=== PATIENT | female | born 1975 | race Caucasian/White ===

== ENCOUNTER 2019-09-26 19:20 | Emergency (ER) | payer OTHER ==
[~2019-09-26] VITALS: Ht 170.2 cm; Wt 63.5 kg
[2019-09-26] MEDS ORDERED: ALL DAY ALLERGY10 M3 PO (19:30)
[2019-09-26] MEDS ORDERED: SERTRALINE HCL100 MG PO (19:30)
[2019-09-26] MEDS ORDERED: ALLEGRA ALLERG180 MG PO (19:31)
[2019-09-26] MEDS ORDERED: ALPRAZOLAM XR3 MG PO (19:31)
[2019-09-26 20:32] VITALS: BP 132/96
[2019-09-27] MEDS ORDERED: PEPCID20 MG PO (10:09)
[2019-09-27] MEDS ORDERED: ZYRTEC 10 MG TA10 MG PO (10:09)
[2019-09-27] MEDS ORDERED: PREDNISONE 20 M20 M1 PO (10:09)
== END 2019-09-26 20:35 | disposition home or self-care (01) ==
LOC: M.ERS 19:20
DX: L50.9 Urticaria, unspecified (principal); M25.432 Effusion, left wrist; F17.210 Nicotine dependence, cigarettes, uncomplicated; Z90.710 Acquired absence of both cervix and uterus

== ENCOUNTER 2019-09-27 09:45 | Emergency (ER) | payer OTHER ==
[~2019-09-27] VITALS: Ht 170.2 cm; Wt 63.5 kg
[~2019-09-27 09:45] MED LIST: ALL DAY ALLERGY10 M3 PO; ALLEGRA ALLERG180 MG PO; ALPRAZOLAM XR3 MG PO; SERTRALINE HCL100 MG PO
[2019-09-27] MEDS ORDERED: ZYRTEC 10 MG TA10 MG PO (10:09)
[2019-09-27] MEDS ORDERED: PEPCID20 MG PO (10:09)
[2019-09-27] MEDS ORDERED: PREDNISONE 20 M20 M1 PO (10:09)
[2019-09-27 10:55] VITALS: BP 118/70
== END 2019-09-27 10:56 | disposition home or self-care (01) ==
LOC: M.ERS 09:45
DX: L50.9 Urticaria, unspecified (principal); F17.210 Nicotine dependence, cigarettes, uncomplicated; Z90.710 Acquired absence of both cervix and uterus

== ENCOUNTER 2019-11-22 23:12 | Emergency (ER) | payer OTHER ==
[~2019-11-22] VITALS: Ht 172.7 cm; Wt 72.6 kg
--- NOTE | ~2019-11-22 | EKG ---
[place] [address] ELECTROCARDIOGRAM REPORT Name: DELL LEE Room: [facility]#: [id number] Admission: 11/22/19 Attend Phys: Discharge: Date of : 75 Date of Service: 11/22/197 Report #: [id number] THIS REPORT FOR: cc: ANNALEE - [place] family physician/PCP ANNALEE - No family physician/PCP Ela Mahmood MD ~ THIS REPORT FOR: //name// 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
[~2019-11-22 23:12] MED LIST changes: +PEPCID20 MG PO; +PREDNISONE 20 M20 M1 PO; +ZYRTEC 10 MG TA10 MG PO
[2019-11-22 23:58] LABS: ABSOLUTE BASOPHILS 0.1 thou/uL (0.0-0.2); ABSOLUTE EOSINOPHILS 0.2 thou/uL (0.0-0.7); ABSOLUTE LYMPHOCYTES 1.1 thou/uL (0.8-5.3); ABSOLUTE MONOCYTES 0.6 thou/uL (0.0-1.2); ABSOLUTE NEUTROPHILS 7.3 thou/uL (1.6-8.1); BASOPHILS 1.1 %; EOSINOPHILS 2.6 %; HEMOGLOBIN 13.7 gm/dL (12.0-15.0); LYMPHOCYTES 11.8 %; MCH 28.7 pg (26.0-34.0); MCHC 33.5 g/dL (28.0-37.0); MCV 85.9 fL (80.0-100.0); MONOCYTES 6.3 %; MPV 8.2 fl. (7.2-11.1); NUCLEATED RBCS 0 /100WBC; PLATELET COUNT* 293 thou/uL (150-400); POLYS 78.2 %; RBC 4.78 mil/uL (4.20-5.00); RDW-CV 13.9 % (10.5-14.5); WBC 9.4 thou/uL (4.0-11.0)
[2019-11-23 00:03] LABS: URINE BILIRUBIN NEGATIVE (Negative); URINE BLOOD 2+ (Negative); URINE CLARITY CLEAR; URINE COLOR YELLOW; URINE GLUCOSE-RANDOM NEGATIVE (Negative); URINE KETONES TRACE (Negative); URINE LEUKOCYTES-REFLEX NEGATIVE (Negative); URINE NITRITE-REFLEX NEGATIVE (Negative); URINE PROTEIN NEGATIVE (Negative); URINE SPECIFIC GRAVITY 1.025 (1.005-1.030); URINE UROBILINOGEN 0.2 E.U./dl (0.2-1.0)
[2019-11-23 00:06] LABS: ALBUMIN 3.6 g/dL (3.4-5.0); CALCIUM 8.1 mg/dL (8.5-10.1); CREATININE 0.7 mg/dL (0.6-1.3); TOTAL BILIRUBIN 0.5 mg/dL (<0.1-1.0); TOTAL PROTEIN 7.4 g/dL (6.4-8.2)
[2019-11-23 00:17] LABS: INFLUENZA A ANTIGEN Negative (Negative); INFLUENZA B ANTIGEN Negative (Negative)
[2019-11-23 00:26] LABS: POTASSIUM 3.6 mmol/L (3.5-5.1)
[2019-11-23 01:26] VITALS: BP 103/61
[2019-11-23 01:26] LABS: CASTS None Seen /LPF (None Seen); SQUAMOUS >10 Many /LPF (0-3)
[2019-11-23 01:27] LABS: MUCUS 4-6 Moderate strn/LPF (None Seen); URINE RBC 0-2 Rare /HPF (0-2); URINE WBC-REFLEX 0-5 Rare /HPF (0-5)
[2019-11-23 01:28] LABS: BACTERIA-REFLEX 1-9 Few /HPF (None Seen); CRYSTALS None Seen /LPF (None Seen)
== END 2019-11-23 01:26 | disposition home or self-care (01) ==
LOC: M.ERS 23:12
PROVIDERS: Personal Emergency Response Attendant
DX: J06.9 Acute upper respiratory infection, unspecified (principal); Z90.710 Acquired absence of both cervix and uterus